=== PATIENT | male | born 1940 | race Caucasian/White ===

== ENCOUNTER 2017-10-16 12:21 | Emergency (ER) | payer MEDICARE, SELFPAY ==
[2017-10-16 12:35] VITALS: BP 157/68; PULSE 86; RESP 20; TEMP 36.7; O2SAT 97; BMI 25.9
--- NOTE | 2017-10-16 12:42 | ED.LOWEXIN ---
HPI - Extremity Injury (Lower) <CHEYANNE Alanis - Last Filed: 10/16/17 23:06> General Chief Complaint: Extremity Injury, Lower Stated Complaint: SORE FOOT Time Seen by Provider: 10/16/17 12:40 Source: patient Mode of arrival: ambulatory Limitations: no limitations History of Present Illness HPI Narrative: Patient presents with right foot pain since the . He states it hurts to walk, hurts to go upstairs, and is relieved by elevation. He notes some swelling and redness of his right foot. He denies any fevers, nausea, vomiting, diarrhea. He denies any numbness or tingling of the foot. He thinks it might be cellulitis but is requesting an x-ray. He states that the redness has been extending since he 1st noticed it. Related Data Previous Rx's Medication Instructions Recorded cephalexin 500 mg PO Q12H 10 Days #20 cap 10/16/17 Allergies Allergy/AdvReac Type Severity Reaction Status Date / Time No Known Drug Allergies Allergy Verified 10/16/17 12:41 Review of Systems <GEOVANNY Alanis - Last Filed: 10/16/17 23:06> Review of Systems GENERAL: See HPI HEENT: Denies sinus pain, ear pain, sore throat, difficulty swallowing, dizziness. RESPIRATORY: Denies dyspnea, cough, wheezing, hemoptysis, sputum. CARDIOVASCULAR: Denies chest pain, palpitations, orthopnea, edema, GASTROINTESTINAL: Denies nausea, vomiting, abdominal pain, diarrhea, constipation, melena. : Denies dysuria, frequency, incontinence, hematuria, urinary retention. MUSCULOSKELETAL: See HPI SKIN: See HPI NEUROLOGIC: Denies weakness, headache, numbness, change in speech, confusion, seizures, incoordination. PSYCHIATRIC: No concerning psychosocial issues. 12 point review of systems is negative except for those stated above Exam <CHEYANNE Alanis - Last Filed: 10/16/17 23:06> Narrative Exam Narrative: GENERAL: This is a well-nourished, well-developed patient in no apparent distress lying on stretcher. HEAD: Atraumatic. Normocephalic. No temporal or scalp tenderness. EYES: Pupils equal round and reactive. Extraocular motions intact. No scleral icterus. No injection or drainage. ENT: Nose without bleeding, purulent drainage or septal hematoma. Throat without erythema, tonsillar hypertrophy or exudate. Uvula midline. Airway patent. NECK: Trachea midline. No JVD or lymphadenopathy. Supple, nontender, no meningeal signs. CARDIOVASCULAR: Regular rate and rhythm without murmurs, gallops, or rubs. RESPIRATORY: Clear to auscultation. Breath sounds equal bilaterally. No wheezes, rales, or rhonchi. GASTROINTESTINAL: Abdomen soft, non-tender, nondistended. No hepato-splenomegaly, or palpable masses. No guarding. EXTREMITIES: No pedal edema bilaterally. Patient is able to extend, flex, pronate, and supinate right foot to full range of motion. No pain to palpation on heel of right foot or bottom of right foot. NEURO: AOx3. SKIN: Erythema and warmth noted top of her right foot approx 8x 10 cm Initial Vital Signs Initial Vital Signs: Vital Signs Temperature 98.1 F 10/16/17 12:35 Pulse Rate 86 10/16/17 12:35 Respiratory Rate 10/16/17 12:35 Blood Pressure 157/68 H 10/16/17 12:35 Pulse Oximetry 97 10/16/17 12:35 <Alton Joshua DO - Last Filed: 10/17/17 07:16> Initial Vital Signs Initial Vital Signs: Vital Signs Temperature 98.1 F 10/16/17 12:35 Pulse Rate 86 10/16/17 12:35 Respiratory Rate 20 10/16/17 12:35 Blood Pressure 157/68 H 10/16/17 12:35 Pulse Oximetry 97 10/16/17 12:35 Course <SANDRA Alanis-SADIQ - Last Filed: 10/16/17 23:06> Hospital Course: At 1300 I evaluated the patient. He presents with erythema on top of his right foot and pain with ambulation. He requested a chest x-ray, which I ordered. Orders Ordered: ED Orders 10/16/17 13:08 XR foot RT min 3V Stat Reevaluation(s) Reevaluation #1: Discussed patient's negative x-ray result and outlined erythema on his foot. Discussed course of action of antibiotics and follow up if development of nausea, vomiting, diarrhea or spreading of erythema. Given x-ray suspicious for plantar fasciitis, discussed possible diagnosed with the patient. However patient denies pain on the bottom of his foot upon palpation. States that only her to the top works red. Time: 13:50 Vital Signs - 8 hr 10/16/17 12:35 Temperature 98.1 F Pulse Rate 86 Respiratory Rate 20 Blood Pressure 157/68 H Pulse Oximetry 97 <Alton Joshua DO - Last Filed: 10/17/17 07:16> Orders Ordered: ED Orders 10/16/17 13:08 XR foot RT min 3V Stat Vital Signs - 8 hr 10/16/17 12:35 Temperature 98.1 F Pulse Rate 86 Respiratory Rate 20 Blood Pressure 157/68 H Pulse Oximetry 97 MDM - Extremity Injury (Lower) <CHEYANNE Alanis - Last Filed: 10/16/17 23:06> Imaging Data Right Foot: Radiologist's impression: [address] [address] XRay Report Signed Patient: Mohit Ricketts MR#: [id number] : 1940 Acct:[id number] Age/Sex: 77 / M Date of Service: 10/16/17 Loc: ED Accession Number: [id number] Procedure: XR foot RT min 3V Ordering Provider: Mary Carrizales PROCEDURE: XR FOOT RT MIN 3V INDICATIONS: foot pain x 5 days, pain with ambulation TECHNIQUE: 3 views of the foot were acquired. COMPARISON: None. FINDINGS: Bones: No fractures or dislocations. There is mild metatarsus adductus and hallux valgus angulation. Mild degenerative changes are present at the 1st metatarsophalangeal joint with joint space narrowing, subchondral sclerosis and cystic change, and mild osteophytosis. There is a small enthesophyte at the origin of the plantar fascia suggesting sequelae of plantar fasciitis. Mild parosteal calcification along the dorsal aspect of the anterior talus is nonspecific and may represent sequelae of anterior impingement. No suspicious bony lesions. Soft tissues: No tibiotalar joint effusion. Achilles tendon appears intact. IMPRESSION: 1. 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 2. Probable sequelae of plantar fasciitis. 3. Mild periosteal thickening dorsally within the anterior talofibular represent sequelae of anterior impingement. Recommend correlation with clinical symptoms. Dictated by: Luis Drake M.D. on 10/16/2017 at 13:28 Approved by: Luis Drake M.D. on 10/16/2017 at 13:30 [facility] Narrative Medical decision making narrative: Given combination of erythema on foot as well as negative x-ray, exam is suspicious for cellulitis. Will treat with Keflex as that his 1st line. Discussed at length follow-up if worsening, extending redness beyond marker borders or fever, nausea, vomiting, diarrhea. Discharge Plan Departure Patient Disposition: Home, Self-Care Clinical Impression: Cellulitis of foot, right, Acute pain of right foot Discharge Date/Time: 10/16/17 14:32 Interventions: ED Discharge Assessment Last Done: 10/16/17 14:32 Instructions: DI for Cellulitis -- Adult, DI for Foot Pain Activity Restrictions/Additional Instructions: I am treating you for an infection in her skin called cellulitis. Please be seen if the redness extends beyond the marker, if you develops fevers or nausea vomiting diarrhea. Your x-ray show no acute fracture of your foot. Use [id number] pain medication as needed, rest, ice, elevation. You can apply ice tear foot for 10 min every few hours, but be careful to not put right on your skin. Prescriptions: New cephalexin 500 mg capsule 500 mg PO Q12H 10 Days Qty: 20 RF: 0 Referrals: Bi Rojo MD [Primary Care Provider] - <Alton Joshua DO - Last Filed: 10/17/17 07:16> Cosign ED Attending Adrián Attestation: I was available for consultation during this patient's emergency department encounter
--- NOTE | 2017-10-16 13:08 | DI.RAD.S_ITS ---
PROCEDURE: XR FOOT RT MIN 3V INDICATIONS: foot pain x 5 days, pain with ambulation TECHNIQUE: 3 views of the foot were acquired. COMPARISON: None. FINDINGS: Bones: No fractures or dislocations. There is mild metatarsus adductus and hallux valgus angulation. Mild degenerative changes are present at the 1st metatarsophalangeal joint with joint space narrowing, subchondral sclerosis and cystic change, and mild osteophytosis. There is a small enthesophyte at the origin of the plantar fascia suggesting sequelae of plantar fasciitis. Mild parosteal calcification along the dorsal aspect of the anterior talus is nonspecific and may represent sequelae of anterior impingement. No suspicious bony lesions. Soft tissues: No tibiotalar joint effusion. Achilles tendon appears intact. IMPRESSION: 1. 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 2. Probable sequelae of plantar fasciitis. 3. Mild periosteal thickening dorsally within the anterior talofibular represent sequelae of anterior impingement. Recommend correlation with clinical symptoms. Dictated by: Luis Drake M.D. on 10/16/2017 at 13:28 Approved by: Luis Drake M.D. on 10/16/2017 at 13:30
--- NOTE | 2017-10-16 13:19 | ED_ITS ---
HPI - Extremity Injury (Lower) <CHEYANNE Alanis - Last Filed: 10/16/17 23:06> General Chief Complaint: Extremity Injury, Lower Stated Complaint: SORE FOOT Time Seen by Provider: 10/16/17 12:40 Source: patient Mode of arrival: ambulatory Limitations: no limitations History of Present Illness HPI Narrative: Patient presents with right foot pain since the . He states it hurts to walk, hurts to go upstairs, and is relieved by elevation. He notes some swelling and redness of his right foot. He denies any fevers, nausea, vomiting, diarrhea. He denies any numbness or tingling of the foot. He thinks it might be cellulitis but is requesting an x-ray. He states that the redness has been extending since he 1st noticed it. Related Data Previous Rx's Medication Instructions Recorded cephalexin 500 mg PO Q12H 10 Days #20 cap 10/16/17 Allergies Allergy/AdvReac Type Severity Reaction Status Date / Time No Known Drug Allergies Allergy Verified 10/16/17 12:41 Review of Systems <GEOVANNY Alanis - Last Filed: 10/16/17 23:06> Review of Systems GENERAL: See HPI HEENT: Denies sinus pain, ear pain, sore throat, difficulty swallowing, dizziness. RESPIRATORY: Denies dyspnea, cough, wheezing, hemoptysis, sputum. CARDIOVASCULAR: Denies chest pain, palpitations, orthopnea, edema, GASTROINTESTINAL: Denies nausea, vomiting, abdominal pain, diarrhea, constipation, melena. : Denies dysuria, frequency, incontinence, hematuria, urinary retention. MUSCULOSKELETAL: See HPI SKIN: See HPI NEUROLOGIC: Denies weakness, headache, numbness, change in speech, confusion, seizures, incoordination. PSYCHIATRIC: No concerning psychosocial issues. 12 point review of systems is negative except for those stated above Exam <CHEYANNE Alanis - Last Filed: 10/16/17 23:06> Narrative Exam Narrative: GENERAL: This is a well-nourished, well-developed patient in no apparent distress lying on stretcher. HEAD: Atraumatic. Normocephalic. No temporal or scalp tenderness. EYES: Pupils equal round and reactive. Extraocular motions intact. No scleral icterus. No injection or drainage. ENT: Nose without bleeding, purulent drainage or septal hematoma. Throat without erythema, tonsillar hypertrophy or exudate. Uvula midline. Airway patent. NECK: Trachea midline. No JVD or lymphadenopathy. Supple, nontender, no meningeal signs. CARDIOVASCULAR: Regular rate and rhythm without murmurs, gallops, or rubs. RESPIRATORY: Clear to auscultation. Breath sounds equal bilaterally. No wheezes , rales, or rhonchi. GASTROINTESTINAL: Abdomen soft, non-tender, nondistended. No hepato-splenomegaly , or palpable masses. No guarding. EXTREMITIES: No pedal edema bilaterally. Patient is able to extend, flex, pronate, and supinate right foot to full range of motion. No pain to palpation on heel of right foot or bottom of right foot. NEURO: AOx3. SKIN: Erythema and warmth noted top of her right foot approx 8x 10 cm Initial Vital Signs Initial Vital Signs: Vital Signs Temperature 98.1 F 10/16/17 12:35 Pulse Rate 86 10/16/17 12:35 Respiratory Rate 10/16/17 12:35 Blood Pressure 157/68 H 10/16/17 12:35 Pulse Oximetry 97 10/16/17 12:35 <Alton Joshua DO - Last Filed: 10/17/17 07:16> Initial Vital Signs Initial Vital Signs: Vital Signs Temperature 98.1 F 10/16/17 12:35 Pulse Rate 86 10/16/17 12:35 Respiratory Rate 20 10/16/17 12:35 Blood Pressure 157/68 H 10/16/17 12:35 Pulse Oximetry 97 10/16/17 12:35 Course <SANDRA Alanis-SADIQ - Last Filed: 10/16/17 23:06> Hospital Course: At 1300 I evaluated the patient. He presents with erythema on top of his right foot and pain with ambulation. He requested a chest x-ray, which I ordered. Orders Ordered: ED Orders 10/16/17 13:08 XR foot RT min 3V Stat Reevaluation(s) Reevaluation #1: Discussed patient's negative x-ray result and outlined erythema on his foot. Discussed course of action of antibiotics and follow up if development of nausea, vomiting, diarrhea or spreading of erythema. Given x- ray suspicious for plantar fasciitis, discussed possible diagnosed with the patient. However patient denies pain on the bottom of his foot upon palpation. States that only her to the top works red. Time: 13:50 Vital Signs - 8 hr 10/16/17 12:35 Temperature 98.1 F Pulse Rate 86 Respiratory Rate 20 Blood Pressure 157/68 H Pulse Oximetry 97 <Alton Joshua DO - Last Filed: 10/17/17 07:16> Orders Ordered: ED Orders 10/16/17 13:08 XR foot RT min 3V Stat Vital Signs - 8 hr 10/16/17 12:35 Temperature 98.1 F Pulse Rate 86 Respiratory Rate 20 Blood Pressure 157/68 H Pulse Oximetry 97 MDM - Extremity Injury (Lower) <CHEYANNE Alanis - Last Filed: 10/16/17 23:06> Imaging Data Right Foot: Radiologist's impression: [address] [address] XRay Report Signed Patient: Mohit Ricketts MR#: [id number] : 1940 Acct:[id number] Age/Sex: 77 / M Date of Service: 10/16/17 Loc: ED Accession Number: [id number] Procedure: XR foot RT min 3V Ordering Provider: Mary Carrizales PROCEDURE: XR FOOT RT MIN 3V INDICATIONS: foot pain x 5 days, pain with ambulation TECHNIQUE: 3 views of the foot were acquired. COMPARISON: None. FINDINGS: Bones: No fractures or dislocations. There is mild metatarsus adductus and hallux valgus angulation. Mild degenerative changes are present at the 1st metatarsophalangeal joint with joint space narrowing, subchondral sclerosis and cystic change, and mild osteophytosis. There is a small enthesophyte at the origin of the plantar fascia suggesting sequelae of plantar fasciitis. Mild parosteal calcification along the dorsal aspect of the anterior talus is nonspecific and may represent sequelae of anterior impingement. No suspicious bony lesions. Soft tissues: No tibiotalar joint effusion. Achilles tendon appears intact. IMPRESSION: 1. 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 2. Probable sequelae of plantar fasciitis. 3. Mild periosteal thickening dorsally within the anterior talofibular represent sequelae of anterior impingement. Recommend correlation with clinical symptoms. Dictated by: Luis Drake M.D. on 10/16/2017 at 13:28 Approved by: Luis Drake M.D. on 10/16/2017 at 13:30 [facility] Narrative Medical decision making narrative: Given combination of erythema on foot as well as negative x-ray, exam is suspicious for cellulitis. Will treat with Keflex as that his 1st line. Discussed at length follow-up if worsening, extending redness beyond marker borders or fever, nausea, vomiting, diarrhea. Discharge Plan Departure Patient Disposition: Home, Self-Care Clinical Impression: Cellulitis of foot, right, Acute pain of right foot Discharge Date/Time: 10/16/17 14:32 Interventions: ED Discharge Assessment Last Done: 10/16/17 14:32 Instructions: DI for Cellulitis -- Adult, DI for Foot Pain Activity Restrictions/Additional Instructions: I am treating you for an infection in her skin called cellulitis. Please be seen if the redness extends beyond the marker, if you develops fevers or nausea vomiting diarrhea. Your x-ray show no acute fracture of your foot. Use over- the-counter pain medication as needed, rest, ice, elevation. You can apply ice tear foot for 10 min every few hours, but be careful to not put right on your skin. Prescriptions: New cephalexin 500 mg capsule 500 mg PO Q12H 10 Days Qty: 20 RF: 0 Referrals: Bi Rojo MD [Primary Care Provider] - <Alton Joshua DO - Last Filed: 10/17/17 07:16> Cosign ED Attending Adrián Attestation: I was available for consultation during this patient's emergency department encounter
[2017-10-16 14:31] VITALS: BP 153/81; PULSE 68; RESP 18; O2SAT 96
== END 2017-10-16 14:32 | disposition home or self-care (01) ==
PROVIDERS: Emergency Provider Nurse Practitioner Family; PCP Student in an Organized Health Care Education/Training Program
DX: L03.115 Cellulitis of right lower limb (principal); M79.671 Pain in right foot
CPT/HCPCS: 73630; 99282; 99283